=== PATIENT | male | born 1980 | race Caucasian/White ===

== ENCOUNTER 2022-02-02 12:00 | Emergency (ER) | payer SELFPAY ==
[~2022-02-02] VITALS: Ht 177.8 cm; Wt 94.0 kg
[2022-02-02] MEDS ORDERED: HYDROmorphone 2 MG/ML VIAL (DILAUDID) ONE (12:05)
[2022-02-02] MEDS ORDERED: LORazepam INJ 2 MG/ML (ATIVAN) VIAL IVP ONE (12:15)
[2022-02-02] MEDS ORDERED: HYDROmorphone 2 MG/ML VIAL (DILAUDID) IV ONE ×3 (12:15→13:45)
[2022-02-02 12:31] LABS: HEMATOCRIT 42 % (40-54); HEMOGLOBIN 14.7 g/dL (13.3-17.7); MEAN CORPUSCULAR HEMOGLOBIN 33 pg (25-34); MEAN CORPUSCULAR HGB CONC 35 g/dL (32-36); MEAN CORPUSCULAR VOLUME 93 fL (80-99); MEAN PLATELET VOLUME 9.5 fL (9.0-12.2); PLATELET COUNT 290 10^3/uL (130-400); WHITE BLOOD COUNT 8.9 10^3/uL (4.3-11.0)
[2022-02-02 12:43] LABS: ALBUMIN 4.4 GM/DL (3.2-4.5); CHLORIDE 107 MMOL/L (98-107); POTASSIUM 3.5 MMOL/L (3.6-5.0); SODIUM 138 MMOL/L (135-145)
[2022-02-02 12:44] LABS: CALCIUM 9.7 MG/DL (8.5-10.1)
[2022-02-02 12:45] LABS: GLUCOSE 114 MG/DL (70-105)
[2022-02-02 12:46] LABS: CARBON DIOXIDE 14 MMOL/L (21-32); TOTAL PROTEIN 7.2 GM/DL (6.4-8.2)
[2022-02-02 12:47] LABS: BILIRUBIN,TOTAL 0.5 MG/DL (0.1-1.0)
[2022-02-02 12:49] LABS: ALKALINE PHOSPHATASE 55 U/L (40-136); CREATININE SERUM 0.83 MG/DL (0.60-1.30); GFR ESTIMATED 113
[2022-02-02 12:50] LABS: BUN/CREATININE RATIO 17
[2022-02-02 12:51] LABS: BILIRUBIN,DIRECT 0.2 MG/DL (0.0-0.3); BILIRUBIN,INDIRECT 0.3 MG/DL
[2022-02-02 12:52] LABS: ALANINE AMINOTRANSFERASE 17 U/L (0-55)
--- NOTE | 2022-02-02 12:52 | Diagnostic Imaging Report ---
HISTORY: Leg pain after trauma. TECHNIQUE: Two views of the right tibia and fibula. COMPARISON: None. FINDINGS: There is a transverse fracture through the distal right fibula diaphysis with about 1.2 cm of overriding, significant medial displacement with mild lateral angulation. There is a severely comminuted fracture of the distal tibia with impaction and displacement including the medial and posterior malleoli. There is soft tissue swelling about the ankle. No acute fracture or dislocation is seen in the proximal right tibia and fibula. IMPRESSION: 1. Severely comminuted, displaced intra-articular fracture of the distal right tibia, likely a pilon fracture. 2. Displaced, angulated fracture of the distal right fibula diaphysis. Dictated by: Dictated on workstation # [id number]
[2022-02-02] MEDS ORDERED: PROMETHAZINE INJ 25 MG/ML (PHENERGAN) AMP IVP ONE (13:00)
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
[2022-02-02 13:49] LABS: AMPHETAMINE SCREEN, URINE NEGATIVE (NEGATIVE); BARBITURATE SCREEN URINE NEGATIVE (NEGATIVE); BENZODIAZEPINES SCREEN URINE NEGATIVE (NEGATIVE); CANNABINOID SCREEN, URINE POSITIVE (NEGATIVE); COCAINE SCREEN URINE NEGATIVE (NEGATIVE); METHADONE STAT NEGATIVE (NEGATIVE); OPIATE SCREEN URINE NEGATIVE (NEGATIVE); OXYCODONE STAT NEGATIVE (NEGATIVE); PROPOXYPHENE STAT NEGATIVE (NEGATIVE); TRICYCLIC ANTIDEPRESSANTS SCRE NEGATIVE (NEGATIVE)
[2022-02-02] MEDS ORDERED: PANTOPRAZOLE 40 MG (PROTONIX) VIAL IV ONE (14:00)
[2022-02-02 15:15] VITALS: BP 174/118
== END 2022-02-02 15:15 | disposition short-term general hospital (02) ==
LOC: ER 12:02
DX: S82.391A Other fracture of lower end of right tibia, initial encounter for closed fracture (principal); S82.831A Other fracture of upper and lower end of right fibula, initial encounter for closed fracture; F17.210 Nicotine dependence, cigarettes, uncomplicated; V03.10XA Pedestrian on foot injured in collision with car, pick-up truck or van in traffic accident, initial encounter
CPT/HCPCS: 29515; 73590; 73620; 80048; 80076; 80306; 85027; 93041; 99291; G0390; G0480; 36415; 80320